=== PATIENT | female | born 1945 | race Caucasian/White ===

== ENCOUNTER 2019-05-13 22:00 | Emergency (ER) | payer MEDICARE, MEDICAID ==
[~2019-05-13] VITALS: Ht 162.6 cm; Wt 63.5 kg
[~2019-05-13 22:00] MED LIST: CALC3.7S NS; DICL100G16 TP; HYDR-3326 PO; LEVO112T5 PO; MULT-634 PO; PANT20TA3 PO; SPIR100T5 PO; SUCR1ORA4 PO
--- NOTE | 2019-05-13 22:05 | NUR ---
PATIENT BIB [facility] FROM HOME FOR BLE SWELLING X 4 DAYS, MORE PAINFUL TO WALK TODAY.
[2019-05-13 22:34] LABS: BASOPHILS # (AUTO) 0.1 K/uL (0.0-8.0); EOSINOPHILS # (AUTO) 0.2 K/uL (0.0-0.7); EOSINOPHILS % (AUTO) 2.2 % (0.0-7.0); HEMATOCRIT 40.5 % (31.2-41.9); HEMOGLOBIN 13.3 g/dL (10.9-14.3); LYMPHOCYTES # (AUTO) 1.6 K/uL (20.0-40.0); LYMPHOCYTES % (AUTO) 22.1 % (20.5-51.5); MEAN CORPUSCULAR HEMOGLOBIN 33.5 uug (24.7-32.8); MEAN CORPUSCULAR HGB CONC 33 g/dL (32.3-35.6); MEAN CORPUSCULAR VOLUME 101.9 fL (75.5-95.3); MONOCYTES # (AUTO) 0.6 K/uL (2.0-10.0); MONOCYTES % (AUTO) 8.2 % (0.0-11.0); NEUTROPHILS % (AUTO) 66.5 % (38.5-71.5); PLATELET COUNT (AUTO) 442 K/uL (179-408); RED BLOOD CELL COUNT(AUTO) 3.98 MIL/uL (3.63-4.92); WHITE BLOOD COUNT (AUTO) 7.4 K/uL (3.8-11.8)
[2019-05-13 22:40] LABS: CREATININE 0.8 mg/dL (0.6-1.3); POTASSIUM 3.9 mmol/L (3.5-5.1)
[2019-05-13 22:57] LABS: BILIRUBIN,DIRECT 0.2 mg/dL (0.0-0.2); BILIRUBIN,TOTAL 0.5 mg/dL (0.2-1.0)
[2019-05-13] MEDS ORDERED: KETOROLAC TROMETHAMINE 30 MG INJ ONE (23:35)
[2019-05-13] MEDS ORDERED: HYDROCODONE/APAP 10-325 MG TABLET ONE (23:36)
[2019-05-13] MEDS: KETOROLAC TROMETHAMINE 30 MG INJ IM ONE (23:42)
[2019-05-13] MEDS: HYDROCODONE/APAP 10-325 MG TABLET PO ONE (23:46)
[2019-05-14 00:14] VITALS: BP 154/88
--- NOTE | 2019-05-14 00:14 | NUR ---
Patient discharged to home in stable conditon. Written and verbal after care instructions given. Patient verbalizes understanding of instructions.
== END 2019-05-14 00:15 | disposition home or self-care (01) ==
LOC: ER 22:01
DX: R60.9 Edema, unspecified (principal); G89.4 Chronic pain syndrome; M25.562 Pain in left knee; M25.561 Pain in right knee; E03.9 Hypothyroidism, unspecified; Z88.8 Allergy status to other drugs, medicaments and biological substances; Z88.6 Allergy status to analgesic agent; Z79.899 Other long term (current) drug therapy
CPT/HCPCS: 36415; 71045; 73030; 80048; 80076; 83880; 84484; 85025; 85379; 85730; 93005; 93970; 96372; 99284; J1885; 70030-TC; A4663